=== PATIENT | male | born 1990 | race Caucasian/White ===

== ENCOUNTER 2017-12-31 08:37 | Day surgery (SDC) | payer OTHER, SELFPAY ==
[2017-12-28 12:59] VITALS: BMI 24.0
[2017-12-31] VITALS (23 sets, daily range): BP systolic 90–149; BP diastolic 49–88; PULSE 16–210; RESP 6–97; TEMP 36.4–36.8; O2SAT 93–100; BMI 24.0
--- NOTE | 2017-12-31 | DI.RAD.S_ITS ---
PROCEDURE: XR KNEE RT 1TO2V INDICATIONS: INTEROP TECHNIQUE: 2 views of the knee were acquired. COMPARISON: None. FINDINGS: Bones: No fractures or dislocations. No suspicious bony lesions. Postoperative changes compatible with anterior cruciate ligament repair noted. Soft tissues: No joint effusion. No suspicious soft tissue calcifications. IMPRESSION: Expected postsurgical change for anterior cruciate ligament repair. Dictated by: Yolanda Briones MD, PhD on 12/31/2017 at 17:10 Approved by: Yolanda Briones MD, PhD on 12/31/2017 at 17:11
--- NOTE | 2017-12-31 08:38 | SUR.OPER ---
Supine on padded OR bed, head on pillow, arms secured on padded arm boards at <90 degrees abduction, legs uncrossed, safety belt at waist, tape over blanket over lower right leg. Left leg drapped free with with arthroscopy brace at thigh
--- NOTE | 2017-12-31 11:16 | PM.PREOP ---
Pre-operative Note Interval Note Pre-op Check: Yes History & Physical Reviewed by Physician and Yes Exam Performed Changes: No
[2017-12-31] MEDS: LACTATED RINGERS 1,000 ML 42 ML IV ×3 (13:14→18:54)
[2017-12-31] MEDS: CEFAZOLIN 2 GM/100 ML FROZ.PIGGY IV (13:52)
--- NOTE | 2017-12-31 14:27 | SUR.OPER ---
Supine on padded OR bed, head on pillow, arms secured on padded arm boards at <90 degrees abduction, legs uncrossed, safety belt at waist, tape over blanket over lower left leg. right leg drapped free with lateral post at right thigh.
[2017-12-31] MEDS: BUPIVACAINE 0.25% (PF) VIAL 30 ML INJ (14:34)
[2017-12-31] MEDS: SODIUM CHLORIDE IRRIG SOLUTION 3,000 ML, EPINEPHrine 1 MG IRR (14:35)
--- NOTE | 2017-12-31 17:32 | SUR.PHASEI ---
When awake heart rate jumps immediatetly to about 125. SR seen.
--- NOTE | 2017-12-31 17:35 | SUR.PHASEI ---
Note: Dr Kinsey aware of HR. Temp taken and afebrile state seen.
--- NOTE | 2017-12-31 17:36 | P.OP_ITS ---
Operative Date/Time/Diagnoses Date of procedure: 12/31/17 Time of procedure: 14:15 Pre-op diagnosis: Right ACL tear status post stage I of a two-stage revision Post-op diagnosis: same Procedure & Clinicians Procedure: Right ACL second-stage revision reconstruction with bone patellar bone autograft Same procedure as scheduled: Yes Indications: 27-year-old male who had an ACL reconstruction with allograft in high school and presented to me with recurrent ACL tear. At time of the 1st surgery in June the tibial tunnel was too short so it was bone grafted we return to the OR today for the definitive procedure. The risks, benefits, alternatives were discussed. The risks include pain bleeding infection damage to nearby structures lack of symptom relief need for further surgery implant complications DVT PE heart attack stroke and anesthesia complications. He was indicated for surgery secondary to his persistent rotational instability with daily activities and his desire to play cutting sports. Surgeon: Khurram Jenkins Doctor Of Naprapathic Medicine: Mio Schaefer Click Yes if Unassisted: No Anesthesia Type: General and Local Operative Notes Findings: Examination under anesthesia: No effusion. Range of motion few degrees of hyperextension to 140? of flexion. Stable varus and valgus stressing at 0 and 30?. 2b Naomi's. Positive pivot shift. Stable to dial testing at 30 and 90?. Diagnostic arthroscopy: Patellofemoral joint was intact. There were no loose bodies in the gutters. The medial hemijoint showed normal tibial and femoral cartilage and the meniscus was without tear in the body and at the root. The lateral hemijoint showed evidence of the prior tear with debridement. There were no secondary tears of the lateral meniscus. The lateral meniscus root shows evidence of a prior injury but the posterior portion of the root remains intact. The notch showed the ACL to continue to be gone and the PCL to be intact. The bone graft on the tibia had synovialized and could not be identified. Closure Type: primary Specimen(s): none sent Implants & Drains: Arthrex BTB tight rope Arthrex 9 mm x 20 mm titanium screw. Estimated Blood Loss (mL): 10 Blood products transfused: none Tourniquet time (min): 130 Procedure in detail: The patient was met in the preop hold area the day of the procedure. The operative extremity was signed and consent was verified. He desired to proceed. He was brought to the operating room and surrendered to anesthesia. Once general anesthesia been obtained he was placed in a supine position and all bony prominences were well padded. And examination under anesthesia was performed. He was then prepped and draped in the standard sterile fashion. A surgical time-out was held to confirm the patient procedure, identity, allergies, antibiotics, images. All were in agreement we proceeded. An Esmarch was used to exsanguinate the limb and tourniquet was elevated 250 mm Hg. An 8 cm longitudinal incision was made midline from the inferior pole of the patella to the tibial tubercle. Sharp dissection was brought down to the paratenon full-thickness skin flaps were created. There were multiple areas of scar tissue associated with his prior surgeries that were sharply dissected through. Through this incision I then created a anterolateral portal and an anteromedial portal for the diagnostic arthroscopy. Anteromedial portal was created under direct visualization and localized with a spinal needle. After completed the diagnostic arthroscopy I used the radiofrequency ablation Wand and sucker shaver to remove synovial tissue from the lateral femoral cortex. Once complete, the preparation was done. I chose to drill the tibia 1st and measured the length to ensure that it was adequate for the surgery. I then brought the tibial guide in and placed it in the center of the ACL footprint. The tibial tunnel measured 55 mm. The guidewire was brought in in line with the posterior border of the anterior horn of the lateral meniscus and 7 mm anterior to the PCL. I then drilled a 10 mm hole while holding the pin with a Aminah. I then cleared off the soft tissue adjacent to the tunnel from the anterior tibia. I then used a probe through this tunnel to measure it from anterior portion inside the joint to the proximal aspect on the anterior tibial cortex. This measured 40 mm. Satisfied with the quality of the tunnel and the position I decided to move forward with rest the surgery. I then split the paratenon midline over the patellar tendon and from the underlying tendon. I measured this tended to be 33 mm wide and I took the central 10 mm. I marked this after measuring it. Fifteen blade was brought into the tendon at the inferior pole of the patella and carried distally to the tibial tubercle. After doing this on both sides I then measured a 22 mm bone block from the patella and a 35 mm bone block from the tibia and marked that with Bovie electrocautery. I then harvested a triangular bone block from the patella and a trapezoidal bone block from the tibia. The corners were perforated with a 2.0 mm drill and the graft was delivered from the wound with a curved osteotome. It was from the fat pad which was left in place. The graft was then brought to the back table and prepared with a rongeur. I placed 2 drill holes through the tibial block and 1 through the femoral block. The femoral block measured 22 mm x 9.5. The tibial bone block measured 35 mm by 9.5. The intervening tendon was 50 mm long. I then placed the arthroscopic the anteromedial portal and the femoral guide in the anterolateral portal. It was placed to leave a 2 mm back wall and knee just off the distal articular margin. The bullet was brought down to the skin laterally and a full-thickness incision was made through the skin and ITB band. The bullet was then brought down to the ITB band and onto the lateral femur. The lateral femur measured 33 mm. We then brought the 10 mm flip cutter into the joint which came and centrally in the aiming guide. The flip cutter was flipped on the lateral wall was scored we were satisfied with the position. I then mallet it in the bullet. I then drilled back 27 mm. The flip cutter removed and a fiber stick was used to pass the suture. I then brought the suture down through the tibial tunnel and loaded the tight rope onto the femoral bone block. The sutures were then passed and the graft was brought into the joint. Once the bone block was near the aperture I used a Aminah to place a posterior into the joint and align it with the tunnel. I then pulled on the sutures and advanced it all the way into the tunnel fully seating it. This left the tight rope out of the skin. Slight counter traction was used and the tight rope sutures were pulled on sequentially until the button made it down to the lateral femur. I directly visualized it on the lateral femur. The knee was then cycled 20 times with tension. I then placed the leg onto the table and put a large bump under the distal femur. 5mm of the tibial bone block was coming from the tibia so I rotated the graft counter- clockwise 1 full turn with left approximately 1 mm still proud distally. Satisfied with this A guidewire was placed, posterior drawer was applied, and a 9 mm x 20 mm screw was placed with excellent purchase. Small amount of excess bone was removed. 1A Naomi's was seen. Full range of motion was performed. The wounds were irrigated copiously. The excess bone was placed into the femoral graft site and tamped down. A small amount of DBX was placed to fill the void. The bursa was then closed over this. I then placed the VX putty into the tibial defect. A running 0 Vicryl was placed in the paratenon on while the knee was flexed to 90?. I then closed subdermal tissues with 2 O Vicryl and running Monocryl in skin. Laterally over the femur the ITB band was closed with 0 Vicryl. There was 2 0 Vicryl in the dermis and a running Monocryl on the skin. Steri-Strips were placed 20 cc of 0.25% Marcaine plain were placed up the wounds. A sterile dressing was applied. A flat plate x-ray was used to confirm position of all implants. The patient was then awakened and transferred to recovery room. Complications: none Condition: stable Disposition: same day surgery Plan for aftercare: Routine BTB ACL. Nonweightbearing 2 weeks with knee locked in full extension. 2-6 weeks: Unlimited range of motion. Knee locked in full extension for ambulation. Weightbearing as tolerated Advanced through the coker protocol per physical therapy. No running until 3 months. X-rays of the knee at the 1st postop visit.
[2017-12-31] MEDS: KETOROLAC 30 MG/ML VIAL IV (17:45)
--- NOTE | 2017-12-31 17:57 | SUR.PHASEI ---
Prolonged recovery due to several factors- slow to regain clear LOC and watching HR that continually increases to 110-125 rate when awake. No temp. Resps slow with somnolence so o2 restarted with good sta in response.
--- NOTE | 2017-12-31 18:29 | SUR.PHASEI ---
Spoke with Dr Santiago about VS, specifically HR that although not as high as before remains tachycardic when awake, now in the 100-[address] Santiago asked about VS and was appraised of readings seen. Directed to keep fluids going. Patient was unable to use urinal recently when trying. Do feel mild anxiety still at play but concerned that primarily somnolent state now passed will reemerge.
[2017-12-31] MEDS: METOCLOPRAMIDE 10 MG/2 ML INJ IV (18:58)
[2017-12-31] MEDS: OXYCODONE/ACETAMINOPHEN 5/325 TABLET 1 TAB PO (19:05)
--- NOTE | 2017-12-31 20:06 | SUR.PHASEII ---
By discharge easily wakeful and appropriate altho still would fall asleep if left alone for a length of time. HR 90-100 and VSS. Did void via urinal. C/O some numbness to toes of operative foot. Foot cool but not cold and circulation intact. Loosened the velco slightly on brace. Medicated for pain and also given nausea preventative med when concern voiced in that respect. Feel some anxiety continued through to discharge, however felt that Lorazepam that could have also helped nausea might have had too sedative an effect as he seemed sensitive to meds. This sensitivity is reminded to patient and his father. Recommended dose of narcotic to start is one tab. It is reminded they are used as needed but that one tonight at 2300 would help with sleep through the night. Stay in OPD somewhat prolonged to deal with monitoring for problems post Percocet (none), VS monitoring as remaining stable, and also teaching as both father and patient with some anxiety.
== END 2017-12-31 19:55 | disposition home or self-care (01) ==
PROVIDERS: PCP Radiology Diagnostic Radiology; Visit Provider Orthopaedic Surgery
PROC: (CPT 29888; principal; 2017-12-31 10:45)
DX: M23.611 Other spontaneous disruption of anterior cruciate ligament of right knee (principal)
CPT/HCPCS: 29888; 73560; J0171; J0690; J1100; J1885; J2250; J2405; J2704; J2765; J3010

== ENCOUNTER → 2025-03-01 07:11 | Outpatient (CLI) | payer OTHER, SELFPAY ==
--- NOTE | 2025-03-01 07:14 | DI.MRI.S_ITS ---
PROCEDURE: MR CERVICAL SPINE WO CON
== END ==
LOC: MRI 07:13
PROVIDERS: Referring Provider Student in an Organized Health Care Education/Training Program; Visit Provider Student in an Organized Health Care Education/Training Program
DX: G54.9 Nerve root and plexus disorder, unspecified (principal); M48.02 Spinal stenosis, cervical region; M47.812 Spondylosis without myelopathy or radiculopathy, cervical region
CPT/HCPCS: 72141